=== PATIENT | male | born 1970 | race Caucasian/White ===

== ENCOUNTER → 2018-10-24 | Outpatient (CLI) | payer OTHER ==
--- NOTE | 2018-10-25 09:25 | RADIOLOGY REPORT (SQ) ---
EXAM DESCRIPTION: MRI RT LOWER EXTREMITY WITHOUT COMPLETED DATE/TIME: 10/24/2018 6:56 pm REASON FOR STUDY: M79.651 PAIN IN RIGHT THIGH M79.651 PAIN IN RIGHT THIGH COMPARISON: None. TECHNIQUE: Multiplanar imaging of the right femur to include fat and fluid sensitive sequences. LIMITATIONS: None. FINDINGS: BONE MARROW: Normal. SOFT TISSUES: Patchy increased T2 signal rectus femoris approximately 15 cm segment centered in the m id thigh. No significant hematoma. OTHER: No other significant finding. IMPRESSION: Grade 1 muscle strain rectus femoris. TECHNICAL DOCUMENTATION: JOB ID: [id number]- All Rights Reserved Reading location - IP/workstation name: [email or web address]
== END ==
LOC: RAD 18:04
PROVIDERS: ATTEND Orthopaedic Surgery Sports Medicine
DX: M79.651 Pain in right thigh (principal)

== ENCOUNTER 2019-03-05 08:47 | Day surgery (SDC) | payer OTHER ==
[~2019-03-05 08:47] MED LIST: LIDOCAINE 2% INJ-PF (100 MG/5 ML) SYRINGE ONE; PROPOFOL INJ 200 MG/20 ML VIAL IV ONE
[2019-03-05] MEDS ORDERED: LIDOCAINE 2% INJ-PF (100 MG/5 ML) SYRINGE ONE (09:57)
[2019-03-05 10:38] VITALS: BP 123/87
[2019-03-05] MEDS ORDERED: PROPOFOL INJ 200 MG/20 ML VIAL IV ONE (12:14)
--- NOTE | 2019-03-05 14:28 | Operative Report ---
Operative Report DATE OF SURGERY: 03/05/19 Operative Report: The risks, benefits and alternatives of the procedure including the risk of bleeding, perforation requiring surgery have been explained to the patient in detail and informed consent has been obtained. Patient is taken back to the endoscopy suite and placed in the left, lateral decubital position. Timeout was called. Propofol medication is administered. Rectal examination is done which did not reveal any masses, tears or fissures. An Olympus videoscope was introduced into the patient's rectum. The scope was then carefully advanced all the way to the cecum. The cecum was identified by the usual anatomical landmarks including the ileocecal valve as well as the appendiceal office. Photodocumentation is obtained. The scope was then sequentially pulled back via the various segments of the colon including the ascending colon, hepatic flexure, transverse colon, splenic flexure, descending colon and finally into the rectosigmoid portions of the colon. Retroflexion maneuvers performed. PREOPERATIVE DIAGNOSIS: Change in bowel habits, chronic constipation. Gastroesophageal reflux disease POSTOPERATIVE DIAGNOSIS: Colonoscopy with biopsy inflammation noted on the right-hand side of the colon status post biopsy. Internal hemorrhoids. Gastritis status post biopsy OPERATION: Colonoscopy with biopsy. EGD with biopsy SURGEON: ARNALDO MANTILLA ANESTHESIA: LMAC TISSUE REMOVED OR ALTERED: As noted above. COMPLICATIONS: None. ESTIMATED BLOOD LOSS: None. INTRAOPERATIVE FINDINGS: As noted above. PROCEDURE: Patient tolerated the procedure well. No immediate postprocedure complications are noted. Patient is discharged in good condition. Discharge date 03/05/2019. Discharge diet: Regular. Discharge activity: Regular. 2 to 3-week follow-up to discuss findings. Patient is instructed to call the office or proceed to the emergency room should there be any further problems, questions. Wait on the pathology.
== END 2019-03-05 10:53 | disposition home or self-care (01) ==
LOC: END 08:47
PROVIDERS: ATTEND Internal Medicine Gastroenterology
DX: K21.9 Gastro-esophageal reflux disease without esophagitis (principal); K52.9 Noninfective gastroenteritis and colitis, unspecified; K64.8 Other hemorrhoids; I10 Essential (primary) hypertension; K29.50 Unspecified chronic gastritis without bleeding; M17.11 Unilateral primary osteoarthritis, right knee; J45.40 Moderate persistent asthma, uncomplicated; Z79.899 Other long term (current) drug therapy; Z79.51 Long term (current) use of inhaled steroids
CPT/HCPCS: 43239; 45380; 88342 ×2; 88305 ×2; 00813; J2001; J2704; 813

== ENCOUNTER → 2020-04-10 | Outpatient (CLI) | payer OTHER ==
--- NOTE | 2020-04-10 18:23 | EKG REPORT ---
SEVERITY:- NORMAL ECG - SINUS RHYTHM : Confirmed by: Flaca Ramirez 10-Apr-2020 18:23:03
== END ==
LOC: OD 10:49
PROVIDERS: ATTEND Family Medicine
DX: R00.2 Palpitations (principal)
CPT/HCPCS: 93005; 93010